=== PATIENT | female | born 1985 | race Hispanic/Latino ===

== ENCOUNTER 2016-03-21 13:23 | Emergency (ER) | payer SELFPAY ==
[~2016-03-21] VITALS: Ht 152.4 cm; Wt 88.2 kg
[~2016-03-21 13:23] MED LIST: KEFLEX500 MG PO; MOTRIN800 MG PO; NAPROSYN500 MG PO; NOHOMEMEDS
[2016-03-21 13:36] VITALS: BP 113/86
[2016-03-21] MEDS ORDERED: NAPROXEN500 MG PO (14:43)
== END 2016-03-21 15:29 | disposition home or self-care (01) ==
LOC: EME 13:23
DX: S63.501A Unspecified sprain of right wrist, initial encounter (principal); X50.0XXA Overexertion from strenuous movement or load, initial encounter; Y93.89 Activity, other specified; Y99.0 Civilian activity done for income or pay
CPT/HCPCS: 73110; 99281; 99283

== ENCOUNTER 2017-08-09 02:21 | Emergency (ER) | payer OTHER ==
[~2017-08-09] VITALS: Ht 154.9 cm; Wt 93.8 kg
[~2017-08-09 02:21] MED LIST changes: +NAPROXEN500 MG PO
[2017-08-09 03:12] LABS: BASOPHIL (%) 0.6 % (0-1); EOSINOPHIL (%) 0.7 % (0-5); EOSINOPHIL COUNT 0.1 K/uL (0-0.3); HEMATOCRIT 38.8 % (36.0-46.0); HEMOGLOBIN 13.1 G/DL (11.9-15.5); IMMATURE GRANULOCYTE (%) 0.4 % (0.0-0.7); LYMPHOCYTE (%) 32.1 % (15-42); LYMPHOCYTE COUNT 2.2 K/uL (1.0-2.8); MCH 29.7 PG (29.0-34.0); MCHC 33.8 G/DL (30.0-36.0); MONOCYTE COUNT 0.5 K/uL (0-0.8); NEUTROPHIL (%) 59.2 % (45-76); NEUTROPHIL COUNT 4.1 K/uL (1.8-6.4); PLATELET COUNT 308 K/uL (156-360); RBC DIS.WIDTH-CV 12.5 % (11.8-14.6); RBC DIS.WIDTH-SD 40.4 % (39-53); RED BLOOD COUNT 4.41 M/uL (3.80-5.20); WHITE BLOOD COUNT 6.9 K/uL (4.1-10.2)
[2017-08-09 03:25] LABS: CHLORIDE 108 mEq/L (99-109); POTASSIUM 3.8 mEq/L (3.7-5.4); SODIUM 137 mEq/L (136-147)
[2017-08-09 03:26] LABS: GLUCOSE 98 mg/dL (70-99)
[2017-08-09 03:30] LABS: SOURCE SWAB
[2017-08-09 03:30] LABS: CREATININE 0.8 mg/dL (0.6-1.3); GFR ESTIMATE (CALCULATED) > 59 mL/min/
[2017-08-09 03:31] LABS: UREA NITROGEN (BUN) 19 mg/dL (9-23)
[2017-08-09 03:39] LABS: QUANTITATIVE HCG < 4.0 MIU/ML
[2017-08-09] MEDS ORDERED: MOTRIN800 MG PO (04:46)
[2017-08-09 04:58] VITALS: BP 138/89
== END 2017-08-09 04:59 | disposition home or self-care (01) ==
LOC: EME 02:21
PROVIDERS: Emergency Medicine
DX: N83.202 Unspecified ovarian cyst, left side (principal); N94.10 Unspecified dyspareunia; N93.0 Postcoital and contact bleeding
CPT/HCPCS: 76856; 80048; 84702; 85025; 86850; 86900; 86901; 87210; 87491; 87591; 99281; 99284